=== PATIENT | female | born 1965 | race Caucasian/White ===

== ENCOUNTER 2023-05-26 03:21 | Inpatient (IN) | payer BC ==
[~2023-05-26] VITALS: Ht 149.9 cm; Wt 91.9 kg
[~2023-05-26 03:21] MED LIST: ABILIFY MYCITE2 M2 PO; ACYC400 PO; ALLERCLEAR10 MG; CHLO4 PO; CYCL10 PO; DOCU100 PO; DULO60; FAMO20; FARXIGA10 MG PO; HAIR, SKIN AND1 EAC1 PO; HYDCHL25; LAMO100; METF500 PO; MORPHINE SULFAT20 MG PO; OZEMPIC2 MG/0.75; PANT40 PO; PREG200 PO; Vitamin B-12100 MCG PO; Vitamin D1000 UNI1 PO; ZOLP10 PO
[2023-05-26 04:02] LABS: BASOPHILS ABSOLUTE AUTO 0.01 K/mm3 (0.00-0.23); BASOPHILS PERCENT AUTO 0 % (0-2); EOSINOPHILS PERCENT AUTO 0 % (0-6); Hemoglobin 13.1 g/dL (11.5-16.0); IMMATURE GRAN ABSOLUTE AUTO 0.04 K/mm3 (0.00-0.10); IMMATURE GRAN PERCENT AUTO 0 % (0-1); LYMPHOCYTES ABSOLUTE AUTO 0.72 K/mm3 (0.84-5.20); LYMPHOCYTES PERCENT AUTO 7 % (21-46); MONOCYTES ABSOLUTE AUTO 0.73 K/mm3 (0.16-1.47); MONOCYTES PERCENT AUTO 7 % (4-13); Mean Corpuscular HGB 29.6 pg (26.0-34.0); Mean Corpuscular Volume 93 fL (80-100); Mean Platelet Volume 9.8 fL (9.1-12.4); NEUTROPHILS ABSOLUTE AUTO 9.37 K/mm3 (1.96-9.15); NEUTROPHILS PERCENT AUTO 86 % (41-73); Platelet Count 299 K/mm3 (150-400); RDW Coefficient Variation 15.3 % (11.7-14.2); RDW Standard Deviation 51.4 fL (35.1-46.3); Red Blood Cell Count 4.43 M/mm3 (3.80-5.20); White Blood Cell Count 10.87 K/mm3 (4.00-11.30)
[2023-05-26 04:15] LABS: Albumin, Blood 3.6 g/dL (3.4-5.0); Albumin/Globulin Ratio 0.8 (0.8-1.8); Bilirubin, Direct 6.7 mg/dL (0.0-0.3); Bilirubin, Indirect 1.4 mg/dL (0.1-0.7); Bilirubin, Total 8.1 mg/dL (0.1-1.0); Bun/Creatinine Ratio 11.4 (12.0-20.0); Calcium, Blood 9.7 mg/dL (8.5-10.1); Creatinine, Blood 0.79 mg/dL (0.40-1.00); Globulin, Blood 4.7 g/dL (2.2-4.0); Magnesium, Blood 1.9 mg/dL (1.6-2.4); Total Protein, Blood 8.3 g/dL (6.4-8.2)
[2023-05-26 06:08] LABS: International Normalized Ratio 1.13; Prothrombin Time Results 11.8 Sec (9.7-11.5)
[2023-05-26 07:57] LABS: Source, Urine Voided
[2023-05-26 08:06] LABS: Appearance, Urine Clear (Clear); Blood, Urine 1+ (Neg); Color, Urine Yellow (P-Yellow); Glucose Qualitative, Urine 4+ (Neg); Ketones, Urine 3+ (Neg); Leukocyte Esterase, Urine 2+ (Neg); Nitrite, Urine Neg (Neg); Protein, Urine 1+ (Neg); Specific Gravity, Urine 1.015 (1.003-1.022); Urobilinogen, Urine 2+ (Normal)
[2023-05-26 08:12] LABS: Bilirubin, Urine 2+ (Neg)
[2023-05-26 08:14] LABS: Bacteria Rare /hpf; Squamous Epithelial Cells Not Seen /hpf (Few); Yeast/Fungi Urine Many /hpf
[2023-05-26] MEDS ORDERED: Methocarbamol750 MG PO (10:04)
[2023-05-26] MEDS ORDERED: ESOMEPRAZOLE MA20 MG PO (10:04)
[2023-05-26] MEDS ORDERED: OXYC5 PO (10:04)
[2023-05-26 11:45] VITALS: BP 120/63
[2023-05-26 14:21] VITALS: BP 95/53
[2023-05-26 19:09] VITALS: BP 109/64
--- NOTE | 2023-05-26 19:24 | NUR ---
SURGEON UPDATE DR. LOUIS NOTIFIED BY DAY SHIFT RN THAT THE PATIENT IS REPORTING 10/10 PAIN EVEN WITH PCU BASAL DOSE AND PRN DOSES. DOCTOR REPORTED HE WOULD BE BY TO ASSESS AND SPEAK TO THE PATIENT THIS EVENING
--- NOTE | 2023-05-26 20:09 | NUR ---
SHIFT SUMMARY PT HAS DONE WELL SINCE ARRIVAL TO UNIT. PAIN WELL MANAGED AND TOLERABLE PER PT. IVF 75ML/HR PER DR BURDEN. CLEAR LIQUIDS, TOLERATED WELL W/NO N/V. SBA USING FWW FOR TX. RECENT SPINAL SURGERY, PT REPORTS DIFFICULTY WITH LLE SINCE. PLAN FOR [facility] [place] FOR ERCP
[2023-05-27 03:02] VITALS: BP 126/69
--- NOTE | 2023-05-27 04:58 | NUR ---
SHIFT SUMMARY VSS. PT SLEPT WELL T/O THE NIGHT. MEDICATED FOR PAIN ONCE WITH OXY. PT AMBULATED TO THE BATHROOM WITH THE LINING FELLER BLINDSTITCH, DARK COCA-COLA COLORED, SLIGHTLY THICK URINE. LOW URINE OUTPUT NOTED, PT UNMOTIVATED TO USE BATHROOM D/T DISCOMFORT WITH MOVING. NO ACUTE EVENTS NOTED. AWAITING CALL FROM HOSPITAL THAT CAN PERFORM ERCP.
[2023-05-27 07:18] LABS: BASOPHILS ABSOLUTE AUTO 0.01 K/mm3 (0.00-0.23); BASOPHILS PERCENT AUTO 0 % (0-2); EOSINOPHILS ABSOLUTE AUTO 0.03 K/mm3 (0.00-0.68); EOSINOPHILS PERCENT AUTO 1 % (0-6); Hematocrit 34.2 % (33.0-51.0); Hemoglobin 10.8 g/dL (11.5-16.0); IMMATURE GRAN ABSOLUTE AUTO 0.02 K/mm3 (0.00-0.10); IMMATURE GRAN PERCENT AUTO 0 % (0-1); LYMPHOCYTES ABSOLUTE AUTO 1.08 K/mm3 (0.84-5.20); LYMPHOCYTES PERCENT AUTO 24 % (21-46); MONOCYTES ABSOLUTE AUTO 0.38 K/mm3 (0.16-1.47); MONOCYTES PERCENT AUTO 9 % (4-13); Mean Corpuscular HGB 29.9 pg (26.0-34.0); Mean Corpuscular HGB Conc 31.6 g/dL (31.5-36.5); Mean Corpuscular Volume 95 fL (80-100); Mean Platelet Volume 9.9 fL (9.1-12.4); NEUTROPHILS ABSOLUTE AUTO 2.95 K/mm3 (1.96-9.15); NEUTROPHILS PERCENT AUTO 66 % (41-73); Platelet Count 178 K/mm3 (150-400); RDW Coefficient Variation 15.7 % (11.7-14.2); RDW Standard Deviation 54.1 fL (35.1-46.3); Red Blood Cell Count 3.61 M/mm3 (3.80-5.20); White Blood Cell Count 4.47 K/mm3 (4.00-11.30)
[2023-05-27 07:34] LABS: Albumin, Blood 2.7 g/dL (3.4-5.0); Albumin/Globulin Ratio 0.7 (0.8-1.8); Bilirubin, Total 7.3 mg/dL (0.1-1.0); Bun/Creatinine Ratio 11.7 (12.0-20.0); Calcium, Blood 8.7 mg/dL (8.5-10.1); Creatinine, Blood 0.69 mg/dL (0.40-1.00); Globulin, Blood 3.8 g/dL (2.2-4.0); Potassium, Blood 3.2 mmol/L (3.5-5.5); Total Protein, Blood 6.5 g/dL (6.4-8.2)
[2023-05-27 07:35] VITALS: BP 138/76
--- NOTE | 2023-05-27 09:50 | NUR ---
Pt. is sitting up on the side of her bed when she welcomes my visit. Pt. is pleasant, but displays evidence of frustration and discomfort. Pt. verbalizes her need to be transferred to another hospital and displays evidence of some anxiety. Listen with empathy, and a calming presence. Pt. welcomed prayer. prayed with Pt. Pt. verbalized gratitude for the spiritual care visit. Will remain available to Pt. before transfer.
[2023-05-27 14:43] VITALS: BP 147/74
--- NOTE | 2023-05-27 16:46 | NUR ---
SHIFT SUMMARY PT REMAINS PAINFUL T/O SHIFT. MEDICATION PER EMAR, SHE REPORTS MORE RELIEF SINCE TRANSITION TO IV MEDICATIONS. ABLE TO AMBULATE TO THE BATHROOM. SHE REMAINS JAUNDICE, STILL WAITING FOR AN AVAILABLE BED TO [facility] TRANSFER FOR ERCP. POWERGLIDE IN PLACE. TOLERATING CLEAR LIQUID DIET WELL. NO FURTHER NEEDS AT THIS TIME.
[2023-05-27 17:38] LABS: Bun/Creatinine Ratio 10.9 (12.0-20.0); Creatinine, Blood 0.64 mg/dL (0.40-1.00); Phosphorus, Blood 2.9 mg/dL (2.5-4.9); Potassium, Blood 3.2 mmol/L (3.5-5.5)
[2023-05-27 19:46] VITALS: BP 147/68
[2023-05-28 03:35] VITALS: BP 141/72
--- NOTE | 2023-05-28 05:58 | NUR ---
SHIFT SUMMARY VSS. PT DID NTO SLEEP T/O THE NIGHT. PAIN HAS BEEN DIFFICULT TO CONTROL EVEN WITH 1-2 MG DILAUDID Q2. NAUSEA HAS WORSENED T/O THE NIGHT, NO EMESIS NOTED. PT REPORTS FEELING "WORSE AND WORSE". AWAITING [facility] TRANSFER FOR ERCP.
--- NOTE | 2023-05-28 06:19 | NUR ---
MEDICATION ADMINISTRATION TOBY BARKER, BEING PRECEPTED BY THIS RN, WAS ADMINISTERING 1MG DILAUDID WHEN THE COMPUTER RESTARTED AND ENDED [employer] IN THE MIDDLE OF CHARTING. THE APPLICATION HAS NOT RESET AT THIS TIME AND IS NOT ALLOWING CHARTING TO BE DONE ON DILAUDID. THIS WAS ADMINISTERED AT 0551, 1 MG. VERIFIED.
[2023-05-28 07:26] VITALS: BP 170/76
[2023-05-28 10:11] LABS: BASOPHILS PERCENT AUTO 0 % (0-2); EOSINOPHILS ABSOLUTE AUTO 0.03 K/mm3 (0.00-0.68); EOSINOPHILS PERCENT AUTO 1 % (0-6); Hematocrit 33.8 % (33.0-51.0); Hemoglobin 10.7 g/dL (11.5-16.0); IMMATURE GRAN ABSOLUTE AUTO 0.02 K/mm3 (0.00-0.10); IMMATURE GRAN PERCENT AUTO 1 % (0-1); LYMPHOCYTES ABSOLUTE AUTO 0.72 K/mm3 (0.84-5.20); LYMPHOCYTES PERCENT AUTO 19 % (21-46); MONOCYTES ABSOLUTE AUTO 0.29 K/mm3 (0.16-1.47); MONOCYTES PERCENT AUTO 8 % (4-13); Mean Corpuscular HGB 29.6 pg (26.0-34.0); Mean Corpuscular HGB Conc 31.7 g/dL (31.5-36.5); Mean Corpuscular Volume 94 fL (80-100); NEUTROPHILS ABSOLUTE AUTO 2.75 K/mm3 (1.96-9.15); NEUTROPHILS PERCENT AUTO 72 % (41-73); Platelet Count 189 K/mm3 (150-400); RDW Coefficient Variation 15.3 % (11.7-14.2); RDW Standard Deviation 52.4 fL (35.1-46.3); Red Blood Cell Count 3.61 M/mm3 (3.80-5.20); White Blood Cell Count 3.81 K/mm3 (4.00-11.30)
[2023-05-28 10:51] LABS: Albumin, Blood 2.7 g/dL (3.4-5.0); Albumin/Globulin Ratio 0.7 (0.8-1.8); Bun/Creatinine Ratio 9.3 (12.0-20.0); Calcium, Blood 9.2 mg/dL (8.5-10.1); Creatinine, Blood 0.65 mg/dL (0.40-1.00); Potassium, Blood 3.2 mmol/L (3.5-5.5); Total Protein, Blood 6.7 g/dL (6.4-8.2)
[2023-05-28 11:40] VITALS: BP 141/75
[2023-05-28 15:20] VITALS: BP 154/73
--- NOTE | 2023-05-28 18:54 | NUR ---
SUMMARY: NO ACUTE CHANGE TODAY. VSS, A/O. PT CONTINUES TO NEED IV AND NAUSEA PAIN MEDICATION FREQUENTLY, SEE EMAR. NO EMESIS. PAIN IS EPI GASTRIC AND ALSO IN HER BACK FROM PREVIOUS SPINAL SURGERY. PT REPORTS PASSING GAS AND HAS BEEN ABLE TO WALK TO BATHROOM. PT UP IN CHAIR FOR PART OF TODAY. PLAN IS FOR TRANSFER FOR ERCP. PT IS ON THE WAIT LIST FOR A BED AT [facility]. PHONE NUMBER [phone]. BOCA RATON CALLED TODAY BY MICHELET PARK RN. NO SAFETY CONCERNS AT THIS TIME.
[2023-05-28 19:48] VITALS: BP 168/75
[2023-05-29 04:50] VITALS: BP 148/72
[2023-05-29 05:00] LABS: BASOPHILS ABSOLUTE AUTO 0.01 K/mm3 (0.00-0.23); BASOPHILS PERCENT AUTO 0 % (0-2); EOSINOPHILS ABSOLUTE AUTO 0.03 K/mm3 (0.00-0.68); EOSINOPHILS PERCENT AUTO 1 % (0-6); Hematocrit 36.9 % (33.0-51.0); Hemoglobin 11.5 g/dL (11.5-16.0); IMMATURE GRAN ABSOLUTE AUTO 0.02 K/mm3 (0.00-0.10); IMMATURE GRAN PERCENT AUTO 0 % (0-1); LYMPHOCYTES ABSOLUTE AUTO 1.32 K/mm3 (0.84-5.20); LYMPHOCYTES PERCENT AUTO 28 % (21-46); MONOCYTES ABSOLUTE AUTO 0.36 K/mm3 (0.16-1.47); MONOCYTES PERCENT AUTO 8 % (4-13); Mean Corpuscular HGB 29.2 pg (26.0-34.0); Mean Corpuscular HGB Conc 31.2 g/dL (31.5-36.5); Mean Corpuscular Volume 94 fL (80-100); Mean Platelet Volume 9.9 fL (9.1-12.4); NEUTROPHILS ABSOLUTE AUTO 2.95 K/mm3 (1.96-9.15); NEUTROPHILS PERCENT AUTO 63 % (41-73); Platelet Count 218 K/mm3 (150-400); RDW Coefficient Variation 15.3 % (11.7-14.2); RDW Standard Deviation 52.9 fL (35.1-46.3); Red Blood Cell Count 3.94 M/mm3 (3.80-5.20); White Blood Cell Count 4.69 K/mm3 (4.00-11.30)
[2023-05-29 05:21] LABS: Albumin, Blood 2.9 g/dL (3.4-5.0); Albumin/Globulin Ratio 0.7 (0.8-1.8); Bilirubin, Total 3.3 mg/dL (0.1-1.0); Bun/Creatinine Ratio 7.4 (12.0-20.0); Calcium, Blood 9.5 mg/dL (8.5-10.1); Creatinine, Blood 0.67 mg/dL (0.40-1.00); Globulin, Blood 4.3 g/dL (2.2-4.0); Magnesium, Blood 1.9 mg/dL (1.6-2.4); Phosphorus, Blood 2.5 mg/dL (2.5-4.9); Potassium, Blood 3.2 mmol/L (3.5-5.5); Total Protein, Blood 7.2 g/dL (6.4-8.2)
--- NOTE | 2023-05-29 06:07 | NUR ---
EOS NOTE: PATIENT EXPRESSED FRUSTRATION THAT SHE HASN'T BEEN TRANSFERED TO ANOTHER HOSPITAL YET. COMPLAINED OF SEVERE PAIN THROUGHOUT THE NIGHT AND WAS MEDICATED ACCORDINGLY, PLEASE REFER TO EMAR. SBA TO BATHROOM DUE TO PATIENT REQUEST PATIENT IS AT BASELINE AMBULATION USING A WALKER AT HOME ALSO. PATIENT RESTED QUIETLY THROUGH MOST OF THE NIGHT. VSS
[2023-05-29 07:35] VITALS: BP 166/77
--- NOTE | 2023-05-29 11:45 | NUR ---
ACCEPTING DR & BED ASSIGNMENT DR LEHMAN IS HOSPITALIST ACCEPTING. [address] [id number] [facility] OR REPORT # [phone]
[2023-05-29 12:10] VITALS: BP 155/58
--- NOTE | 2023-05-29 12:15 | NUR ---
TRANSFER SUMMARY ALERT, ORIENTED, PLEASANT, COOPERATIVE. ROOM AIR, CPAP WHEN SLEEPING. SINUS TACH, ELEVATED SBP. NAUSEA, LOW PO INTAKE, MEDICATED FOR NAUSEA PRN. NO VOMITING. NS RUNNING AT 75 ML/HR. GOOD URINE OUTPUT. BM THIS SHIFT. SEVERE ABD PAIN MANAGED WITH IV DILAUDID PRN. SBA WITH FWW TO BATHROOM. ACCEPTING PHYSICIAN AND BED AT THE [facility] RM [id number]. REPORT CALLED TO RECIEVING LUCERO KENDRICK. PATIENT INFORMED OF TRANSFER AND AGREEABLE TO PLAN. [facility].
[2023-05-29 12:28] VITALS: BP 155/58
--- NOTE | 2023-05-29 12:40 | NUR ---
ROOM # CHANGED TO [id number]
--- NOTE | 2023-05-29 14:12 | NUR ---
MEDICAL TRANSPORT ARRIVED. PATIENT ASSISTED TO BATHROOM, WAS ABLE TO VOID. ASSISTED ONTO THE GURNEY. MEEDICATED WITH ZOFRAN AND DILAUDID PER EMAR. IV FLUIDS RESTARTED WITH POTASSIUM PHOSPHATE RUNNING AND NS AT 75. PATIENT LEFT UNIT AT 1300, SON LEFT WITH PATIENT'S BELONGINGS.
== END 2023-05-29 13:00 | disposition short-term general hospital (02) | DRG 445 ==
LOC: ER 03:21 → SURS 03:22
PROVIDERS: Emergency Medicine; Student in an Organized Health Care Education/Training Program; ADMIT Family Medicine
DX: K80.51 Calculus of bile duct without cholangitis or cholecystitis with obstruction (principal); M96.840 Postprocedural hematoma of a musculoskeletal structure following a musculoskeletal system procedure; E87.6 Hypokalemia; M54.9 Dorsalgia, unspecified; G89.29 Other chronic pain; E80.6 Other disorders of bilirubin metabolism; E66.9 Obesity, unspecified; F41.9 Anxiety disorder, unspecified; M48.061 Spinal stenosis, lumbar region without neurogenic claudication; K75.81 Nonalcoholic steatohepatitis (NASH); G47.00 Insomnia, unspecified; H15.9 Unspecified disorder of sclera; X58.XXXA Exposure to other specified factors, initial encounter; Z88.1 Allergy status to other antibiotic agents; Z88.8 Allergy status to other drugs, medicaments and biological substances; Z91.040 Latex allergy status; Z91.048 Other nonmedicinal substance allergy status; Z79.84 Long term (current) use of oral hypoglycemic drugs; Z79.899 Other long term (current) drug therapy; Z90.49 Acquired absence of other specified parts of digestive tract; Z98.84 Bariatric surgery status; Z90.710 Acquired absence of both cervix and uterus; Z98.1 Arthrodesis status; Z98.890 Other specified postprocedural states; Z68.39 Body mass index [BMI] 39.0-39.9, adult; Y83.8 Other surgical procedures as the cause of abnormal reaction of the patient, or of later complication, without mention of misadventure at the time of the procedure
CPT/HCPCS: 36415; 74177; 80048; 80053; 80076; 81001; 82947; 83690; 83735; 84100; 85025; 85610; 85730; 87086; 93005; 93010; 94660; 94762; 96361; 96365-59; 96366; 96375; 99285-25; A9270; J0696; J1170; J1644; J2001; J2270; J2405; J2765; J3475; J3480; J7030; J7050; J7060; Q9967